=== PATIENT | male | born 2005 | race Two or more races ===

== ENCOUNTER 2024-09-15 01:29 | Emergency (ER) | payer OTHER ==
[~2024-09-15] VITALS: Ht 185.4 cm; Wt 62.7 kg
[2024-09-15 01:31] VITALS: PULSE 105
[2024-09-15 02:27] VITALS: BP 111/68; RESP 16; TEMP 98.5; O2SAT 98
== END 2024-09-15 02:28 ==
LOC: ER 01:31
DX: Z04.1 Encounter for examination and observation following transport accident (principal); V89.2XXA Person injured in unspecified motor-vehicle accident, traffic, initial encounter; Y93.89 Activity, other specified; Y92.410 Unspecified street and highway as the place of occurrence of the external cause; Y99.8 Other external cause status
CPT/HCPCS: 99283